=== PATIENT | male | born 1945 | race Two or more races ===

== ENCOUNTER 2022-09-28 21:00 | Inpatient (IN) | payer MEDICARE, OTHER ==
[~2022-09-28] VITALS: Ht 165.1 cm; Wt 47.2 kg
[2022-09-28] MEDS ORDERED: ALBUTEROL FS 2.5 MG/3 ML VIAL.NEB NEB ONE (21:30)
[2022-09-28] MEDS ORDERED: ACETAMINOPHEN 650 MG/SUPP.RECT RC ONE ×2 (21:37→22:00)
[2022-09-28 21:48] LABS: BASOPHILS % (AUTO) 0.2 % (0.0-2.0); HEMATOCRIT 41 % (39-51); HEMOGLOBIN 12.9 g/dL (13.5-17.5); LYMPHOCYTES # (AUTO) 0.6 K/uL (0.8-4.8); LYMPHOCYTES % (AUTO) 11.3 % (20.0-44.0); MEAN CORPUSCULAR HGB CONC 32 g/dl (31.0-36.0); MEAN CORPUSCULAR VOLUME 89 fL (80-96); MONOCYTES # (AUTO) 0.4 K/uL (0.1-1.30); MONOCYTES % (AUTO) 7.3 % (2.0-12.0); NEUTROPHILS # (AUTO) 4.1 K/uL (1.8-8.9); NEUTROPHILS % (AUTO) 81.2 % (43.0-81.0); PLATELET COUNT (AUTO) 118 K/uL (150-450); RED BLOOD CELL COUNT(AUTO) 4.58 MIL/uL (4.5-6.0); WHITE BLOOD COUNT (AUTO) 5.1 K/uL (4.3-11.0)
[2022-09-28] MEDS ORDERED: ALBUTEROL FS 2.5 MG/3 ML VIAL.NEB ONE (21:48)
[2022-09-28 21:51] VITALS: O2SAT 93
[2022-09-28 21:57] LABS: CALCIUM, SERUM 12.5 mg/dL (8.5-10.1); CARBON DIOXIDE 24 mmol/L (21-32); CREATININE 3.3 mg/dL (0.6-1.3); GLUCOSE 164 mg/dL (74-106); POTASSIUM 3.8 mmol/L (3.5-5.1); UREA NITROGEN, BLOOD 51 mg/dL (7-18)
[2022-09-28 21:59] LABS: CHLORIDE 131 mmol/L (98-107); SODIUM SERUM 167 mmol/L (136-145)
[2022-09-28 22:02] VITALS: O2SAT 92
[2022-09-28 22:10] LABS: ALANINE AMINOTRANSFERASE 18 U/L (12-78); ALBUMIN 3.2 g/dL (3.4-5.0); ALKALINE PHOSPHATASE 57 U/L (46-116); ASPARTATE AMINOTRANSFERASE 21 U/L (15-37); BILIRUBIN,DIRECT 0.4 mg/dL (0.0-0.2); BILIRUBIN,TOTAL 1.1 mg/dL (0.2-1.0)
[2022-09-28] MEDS ORDERED: ASPIRIN 300 MG/SUPP.RECT RC ONE ×2 (23:00→23:05)
[2022-09-28] MEDS ORDERED: IV NS 0.9% 1,000 ML BAG IV ONE (23:00)
[2022-09-28 23:05] LABS: BILIRUBIN,URINE NEGATIVE (NEGATIVE); COLOR,URINE YELLOW (YELLOW); LEUKOCYTE ESTERASE ,URINE TRACE (NEGATIVE); NITRITE, URINE NEGATIVE (NEGATIVE); PROTEIN,URINE 3+ mg/dl (NEGATIVE); UGLUCOSE NEGATIVE (NEGATIVE); UROBILINOGEN,URINE 0.2 EU/dL (0.2)
[2022-09-28 23:24] LABS: BACTERIA,URINE 2+ /HPF (None Seen); WBC,URINE 0-2 /HPF (0-3)
[2022-09-28 23:25] LABS: HYALINE CASTS, URINE Few /LPF (None Seen); MUCUS,URINE Many /LPF (None Seen); SQUAMOUS EPITHELIAL CELL,UR 0-2 /HPF (None Seen)
[2022-09-29] VITALS: BP 116/68; TEMP 98.3; O2SAT 92
[2022-09-29] MEDS ORDERED: CEFEPIME 1 GM in IV D5W 50 ML IV ONE ×2
[2022-09-29] MEDS ORDERED: CEFEPIME 1 GM VIAL ONE (00:03)
[2022-09-29] MEDS ORDERED: ONDANSETRON HCL/PF 4 MG/2 ML VIAL IVP PRN (00:30)
[2022-09-29] MEDS ORDERED: ACETAMINOPHEN 650 MG/SUPP.RECT RC PRN (00:30)
[2022-09-29] MEDS ORDERED: Z GUARD REMEDY 4 OZ OINT TP PRN (00:30)
[2022-09-29] MEDS ORDERED: MORPHINE SULFATE INJ 2 MG/ML DISP.SYRIN IV PRN (00:30)
[2022-09-29] MEDS: IV D5W 1,000 ML IV PRN ×2 (01:12→18:14)
[2022-09-29 02:30] VITALS: BP 126/68; TEMP 98.3; O2SAT 94
[2022-09-29] MEDS: CEFEPIME 1 GM in IV D5W 50 ML IV SCH (08:28)
[2022-09-29] MEDS: PANTOPRAZOLE 40 MG VIAL IV SCH (08:28)
[2022-09-29] MEDS: ASPIRIN 81 MG TAB.CHEW PO SCH (12:00)
[2022-09-29 13:01] LABS: CALCIUM, SERUM 11.7 mg/dL (8.5-10.1); CARBON DIOXIDE 21 mmol/L (21-32); CREATININE 3.5 mg/dL (0.6-1.3); GLUCOSE 197 mg/dL (74-106); POTASSIUM 3.7 mmol/L (3.5-5.1); UREA NITROGEN, BLOOD 63 mg/dL (7-18)
[2022-09-29 13:07] LABS: CHLORIDE 129 mmol/L (98-107); SODIUM SERUM 164 mmol/L (136-145)
[2022-09-29 20:00] VITALS: BP 136/80; TEMP 97.7; O2SAT 97
[2022-09-30 05:53] LABS: BASOPHILS % (AUTO) 0.2 % (0.0-2.0); HEMATOCRIT 36 % (39-51); HEMOGLOBIN 11.6 g/dL (13.5-17.5); LYMPHOCYTES # (AUTO) 0.4 K/uL (0.8-4.8); LYMPHOCYTES % (AUTO) 8.8 % (20.0-44.0); MEAN CORPUSCULAR HGB CONC 32 g/dl (31.0-36.0); MEAN CORPUSCULAR VOLUME 88 fL (80-96); MONOCYTES # (AUTO) 0.2 K/uL (0.1-1.30); MONOCYTES % (AUTO) 4.9 % (2.0-12.0); NEUTROPHILS # (AUTO) 4.2 K/uL (1.8-8.9); NEUTROPHILS % (AUTO) 86.1 % (43.0-81.0); PLATELET COUNT (AUTO) 102 K/uL (150-450); RED BLOOD CELL COUNT(AUTO) 4.05 MIL/uL (4.5-6.0); WHITE BLOOD COUNT (AUTO) 4.8 K/uL (4.3-11.0)
[2022-09-30 06:06] LABS: CALCIUM, SERUM 12.3 mg/dL (8.5-10.1); CARBON DIOXIDE 24 mmol/L (21-32); CREATININE 3.1 mg/dL (0.6-1.3); GLUCOSE 109 mg/dL (74-106); MAGNESIUM 2.8 mg/dL (1.8-2.4); PHOSPHORUS 2.1 mg/dL (2.5-4.9); POTASSIUM 3.8 mmol/L (3.5-5.1); UREA NITROGEN, BLOOD 76 mg/dL (7-18)
[2022-09-30 06:15] LABS: CHLORIDE 132 mmol/L (98-107); SODIUM SERUM 166 mmol/L (136-145)
[2022-09-30] MEDS: IV D5W 1,000 ML IV SCH ×2 (07:30→15:44)
[2022-09-30] MEDS: ASPIRIN 81 MG TAB.CHEW PO SCH (07:30)
[2022-09-30] MEDS: PANTOPRAZOLE 40 MG VIAL IV SCH (10:52)
[2022-09-30] MEDS: CEFEPIME 1 GM in IV D5W 50 ML IV SCH (10:53)
[2022-09-30 14:49] LABS: CARBON DIOXIDE 25 mmol/L (21-32); CREATININE 2.8 mg/dL (0.6-1.3); GLUCOSE 127 mg/dL (74-106)
[2022-09-30] MEDS ORDERED: GLYCOPYRROLATE 0.2 MG/ML VIAL IV PRN (15:00)
[2022-09-30 15:10] LABS: CALCIUM, SERUM 11.4 mg/dL (8.5-10.1)
[2022-09-30 15:19] LABS: CHLORIDE 127 mmol/L (98-107); SODIUM SERUM 160 mmol/L (136-145); UREA NITROGEN, BLOOD 81 mg/dL (7-18)
[2022-09-30] MEDS ORDERED: Potassium Chloride 20 MEQ in IV NS 0.9% 1,000 ML IV SCH (20:00)
[2022-09-30] MEDS ORDERED: POTASSIUM CHLORIDE 10 MEQ/50 ML PREMIXED IVPB FOR PERIPHERAL LINE IV ONE (20:00)
[2022-09-30] MEDS: POTASSIUM CL. PREMIX PERIPHER. 50 ML IV SCH ×2 (20:29→21:40)
[2022-10-01] MEDS: IV D5W 1,000 ML IV SCH ×4 (00:21→20:33)
[2022-10-01 07:16] LABS: EOSINOPHILS % (AUTO) 0.5 % (0.0-6.0); HEMATOCRIT 34 % (39-51); HEMOGLOBIN 11.1 g/dL (13.5-17.5); LYMPHOCYTES # (AUTO) 0.5 K/uL (0.8-4.8); LYMPHOCYTES % (AUTO) 8.2 % (20.0-44.0); MEAN CORPUSCULAR HGB CONC 33 g/dl (31.0-36.0); MEAN CORPUSCULAR VOLUME 88 fL (80-96); MONOCYTES # (AUTO) 0.3 K/uL (0.1-1.30); NEUTROPHILS # (AUTO) 5.8 K/uL (1.8-8.9); NEUTROPHILS % (AUTO) 87.3 % (43.0-81.0); PLATELET COUNT (AUTO) 98 K/uL (150-450); RED BLOOD CELL COUNT(AUTO) 3.89 MIL/uL (4.5-6.0); WHITE BLOOD COUNT (AUTO) 6.7 K/uL (4.3-11.0)
[2022-10-01] MEDS: CEFEPIME 1 GM in IV D5W 50 ML IV SCH (08:00)
[2022-10-01 08:01] LABS: CALCIUM, SERUM 11.2 mg/dL (8.5-10.1); CARBON DIOXIDE 23 mmol/L (21-32); CHLORIDE 124 mmol/L (98-107); GLUCOSE 145 mg/dL (74-106); MAGNESIUM 2.6 mg/dL (1.8-2.4); POTASSIUM 3.7 mmol/L (3.5-5.1); UREA NITROGEN, BLOOD 66 mg/dL (7-18)
[2022-10-01 08:02] LABS: SODIUM SERUM 156 mmol/L (136-145)
[2022-10-01] MEDS: PANTOPRAZOLE 40 MG VIAL IV SCH (09:09)
[2022-10-01] MEDS: ASPIRIN 81 MG TAB.CHEW PO SCH (09:09)
[2022-10-01] MEDS ORDERED: LORA-259 PO (10:25)
[2022-10-01] MEDS ORDERED: QUET50TA PO (10:25)
[2022-10-01] MEDS ORDERED: TAMS-12 PO (10:25)
[2022-10-01] MEDS ORDERED: QUET100T PO (10:25)
[2022-10-01] MEDS ORDERED: RISP1TAB7 PO (10:25)
[2022-10-01] MEDS ORDERED: ZINC50TA39 PO (10:25)
[2022-10-01] MEDS ORDERED: TRAZ-257 PO (10:25)
[2022-10-01] MEDS ORDERED: CHOL200059 PO (10:25)
[2022-10-01] MEDS ORDERED: LOSA50TA39 PO (10:25)
[2022-10-02] MEDS: IV D5W 1,000 ML IV SCH (04:55)
[2022-10-02 06:04] LABS: BASOPHILS % (AUTO) 0.1 % (0.0-2.0); EOSINOPHILS % (AUTO) 2.3 % (0.0-6.0); HEMATOCRIT 32 % (39-51); HEMOGLOBIN 10.4 g/dL (13.5-17.5); LYMPHOCYTES # (AUTO) 0.5 K/uL (0.8-4.8); LYMPHOCYTES % (AUTO) 10.2 % (20.0-44.0); MEAN CORPUSCULAR HGB CONC 33 g/dl (31.0-36.0); MEAN CORPUSCULAR VOLUME 87 fL (80-96); MONOCYTES # (AUTO) 0.2 K/uL (0.1-1.30); MONOCYTES % (AUTO) 4.8 % (2.0-12.0); NEUTROPHILS # (AUTO) 3.8 K/uL (1.8-8.9); NEUTROPHILS % (AUTO) 82.6 % (43.0-81.0); PLATELET COUNT (AUTO) 96 K/uL (150-450); RED BLOOD CELL COUNT(AUTO) 3.64 MIL/uL (4.5-6.0); WHITE BLOOD COUNT (AUTO) 4.6 K/uL (4.3-11.0)
[2022-10-02 06:33] LABS: CALCIUM, SERUM 10.9 mg/dL (8.5-10.1); CREATININE 1.3 mg/dL (0.6-1.3); MAGNESIUM 2.3 mg/dL (1.8-2.4); PHOSPHORUS 2.7 mg/dL (2.5-4.9); POTASSIUM 3.9 mmol/L (3.5-5.1)
[2022-10-02] MEDS: CEFEPIME 1 GM in IV D5W 50 ML IV SCH (07:39)
[2022-10-02 08:00] VITALS: BP 137/77; TEMP 97.4; O2SAT 99
[2022-10-02 08:07] LABS: *ANA ANTI-CENTROMERE B AB <0.2 AI (0.0-0.9); *ANA ANTI-DNA(DS) AB, QN <1 IU/mL (0-9); *ANA ANTI-JO-1 <0.2 AI (0.0-0.9); *ANA ANTICHROMATIN ANTIBODY <0.2 AI (0.0-0.9); *ANA RNP ANTIBODIES <0.2 AI (0.0-0.9); *ANA SJOGREN'S ANTI-SS-A <0.2 AI (0.0-0.9); *ANA SJOGREN'S ANTI-SS-B <0.2 AI (0.0-0.9); *ANAANTI-SCLERODERMA-70 AB <0.2 AI (0.0-0.9); *ANASMITH AB <0.2 AI (0.0-0.9); COMPLEMENT C3, SERUM 117 mg/dL (82-167); COMPLEMENT C4, SERUM 54 mg/dL (12-38)
[2022-10-02 08:52] LABS: LYMPHOCYTES % (MANUAL) 9 % (16-48); MONOCYTES % (MANUAL) 3 % (0-11.0); NEUTROPHILS % (MANUAL) 88 (42-76)
[2022-10-02] MEDS: PANTOPRAZOLE 40 MG VIAL IV SCH (09:07)
[2022-10-02] MEDS: ASPIRIN 81 MG TAB.CHEW PO SCH (09:08)
[2022-10-02] MEDS: IV D5W 1,000 ML IV PRN (15:54)
[2022-10-02 16:00] VITALS: BP 146/74; TEMP 97.4; O2SAT 99
[2022-10-02 20:00] VITALS: BP_SYST 137; BP_SYST 143; BP_DIAS 75; BP_DIAS 81; TEMP 98.3; TEMP 98.4; O2SAT 94; O2SAT 98
[2022-10-03] VITALS: BP_SYST 137; BP_SYST 143; BP_DIAS 75; BP_DIAS 81; TEMP 98.3; TEMP 98.4; O2SAT 94; O2SAT 98
[2022-10-03] MEDS: IV D5W 1,000 ML IV PRN ×3 (01:11→17:21)
[2022-10-03 05:58] LABS: CALCIUM, SERUM 10.8 mg/dL (8.5-10.1); CARBON DIOXIDE 24 mmol/L (21-32); CHLORIDE 113 mmol/L (98-107); CREATININE 1.1 mg/dL (0.6-1.3); GLUCOSE 117 mg/dL (74-106); POTASSIUM 3.2 mmol/L (3.5-5.1); SODIUM SERUM 144 mmol/L (136-145); UREA NITROGEN, BLOOD 29 mg/dL (7-18)
[2022-10-03 08:00] VITALS: BP 142/72; TEMP 97.9; O2SAT 99
[2022-10-03] MEDS: PANTOPRAZOLE 40 MG VIAL IV SCH (08:05)
[2022-10-03] MEDS: CEFEPIME 1 GM in IV D5W 50 ML IV SCH (08:05)
[2022-10-03] MEDS: ASPIRIN 81 MG TAB.CHEW PO SCH (08:05)
[2022-10-03 11:46] VITALS: O2SAT 92
[2022-10-03 16:00] VITALS: BP 116/75; TEMP 97.7; O2SAT 95
[2022-10-03 20:00] VITALS: BP 150/83; TEMP 98.6; O2SAT 95
[2022-10-04] VITALS: O2SAT 95
[2022-10-04] MEDS: IV D5W 1,000 ML IV PRN (01:34)
[2022-10-04 07:32] LABS: CALCIUM, SERUM 10.6 mg/dL (8.5-10.1); CREATININE 0.9 mg/dL (0.6-1.3); POTASSIUM 3.5 mmol/L (3.5-5.1)
[2022-10-04 08:00] VITALS: BP 153/55; TEMP 97.9; O2SAT 97
[2022-10-04] MEDS ORDERED: CEFTRIAXONE 1 G in IV D5W 50 ML IV SCH (08:00)
[2022-10-04] MEDS ORDERED: PANTOPRAZOLE 40 MG/PACK PACK PO SCH (09:00)
[2022-10-04] MEDS: ASPIRIN 81 MG TAB.CHEW PO SCH (09:09)
== END 2022-10-04 14:55 | disposition hospice, home (50) | DRG 871 ==
LOC: ER 21:10 → TELE-TD 09-29 02:08 → TELE1 09-29 02:32 → MEDSG1 09-30 19:43
PROVIDERS: ADMIT Nurse Practitioner Acute Care; ATTEND Internal Medicine
DX: A41.9 Sepsis, unspecified organism (principal); E43 Unspecified severe protein-calorie malnutrition; I21.4 Non-ST elevation (NSTEMI) myocardial infarction; N17.0 Acute kidney failure with tubular necrosis; J69.0 Pneumonitis due to inhalation of food and vomit; E87.0 Hyperosmolality and hypernatremia; N39.0 Urinary tract infection, site not specified; E87.20 Acidosis, unspecified; R64 Cachexia; Z68.1 Body mass index [BMI] 19.9 or less, adult; I50.30 Unspecified diastolic (congestive) heart failure; R62.7 Adult failure to thrive; Z20.822 Contact with and (suspected) exposure to COVID-19; Z66 Do not resuscitate; G20 Parkinson's disease; G30.9 Alzheimer's disease, unspecified; F02.C0 Dementia in other diseases classified elsewhere, severe, without behavioral disturbance, psychotic disturbance, mood disturbance, and anxiety; B96.89 Other specified bacterial agents as the cause of diseases classified elsewhere; Z51.5 Encounter for palliative care; E83.52 Hypercalcemia; D69.6 Thrombocytopenia, unspecified; E87.8 Other disorders of electrolyte and fluid balance, not elsewhere classified; E86.0 Dehydration; I11.0 Hypertensive heart disease with heart failure; E83.39 Other disorders of phosphorus metabolism; R13.10 Dysphagia, unspecified
CPT/HCPCS: 36415; 71045-TC; 80048-TC; 80076-TC; 81001; 82533; 83605-TC; 83735-TC; 83880; 84100-TC; 84443-TC; 84484-TC; 85025-TC; 85730-TC; 86225; 86235; 86706; 86803; 87040-TC; 87081-TC; 87086-TC; 92507-TC; 92526; 92611-TC; 93307-TC; 94799-TC; 97110-TC; 97116-TC; 97530-TC; A4223; C9113; C9803; G0378; J0692; J0696; J2270; J3480; J3490; J7040; J7050; J7060; J7070

== ENCOUNTER 2025-01-30 10:43 | Inpatient (IN) | payer MEDICARE, OTHER ==
[~2025-01-30] VITALS: Ht 170.2 cm; Wt 63.5 kg
[2025-01-30 11:27] LABS: PLATELET COUNT (AUTO) 108 K/uL (150-450); RED BLOOD CELL COUNT(AUTO) 3.30 MIL/uL (4.5-6.0); RED CELL DISTRIBUTION WIDTH 14.0 % (11.5-15.0); WHITE BLOOD COUNT (AUTO) 6.3 K/uL (4.3-11.0)
[2025-01-30 11:36] LABS: CALCIUM, SERUM 9.9 mg/dL (8.5-10.1); CREATININE 1.4 mg/dL (0.6-1.3); SODIUM SERUM 136.0 mmol/L (136-145); UREA NITROGEN, BLOOD 23.0 mg/dL (7-18)
[2025-01-30 11:42] LABS: ASPARTATE AMINOTRANSFERASE 11.0 U/L (15-37); TOTAL PROTEIN, SERUM 6.7 g/dL (6.4-8.2)
[2025-01-30] MEDS ORDERED: LOSA100T31 PO (11:52)
[2025-01-30] MEDS ORDERED: LORA-258 PO (11:52)
[2025-01-30] MEDS ORDERED: TRAZ-182 PO (11:52)
[2025-01-30] MEDS ORDERED: TAMS-12 PO (11:52)
[2025-01-30] MEDS ORDERED: ONDANSETRON HCL/PF 4 MG/2 ML VIAL IVP PRN (13:00)
[2025-01-30] MEDS ORDERED: MORPHINE SULFATE INJ 2 MG/ML DISP.SYRIN IV PRN (13:00)
[2025-01-30] MEDS ORDERED: MAGNESIUM HYDROXIDE 30 ML UDC PO PRN (13:00)
[2025-01-30] MEDS ORDERED: TRAZODONE 50 MG TABLET PO PRN (13:00)
[2025-01-30] MEDS ORDERED: Z GUARD REMEDY 4 OZ OINT TP PRN (13:00)
[2025-01-30] MEDS ORDERED: LORAZEPAM 0.5 MG TABLET PO PRN (13:00)
[2025-01-30] MEDS: IV NS 0.9% 1,000 ML IV SCH (13:00)
[2025-01-30] MEDS: DOCUSATE SODIUM LIQ 100 MG/10 ML UDC PO SCH (15:38)
[2025-01-30 15:49] VITALS: BP 180/100; TEMP 97.7; O2SAT 98
[2025-01-30] MEDS: hydrALAZINE HCL IV 20 MG VIAL IV PRN (15:52)
[2025-01-30 16:00] VITALS: BP 140/79; TEMP 97.3; O2SAT 99
[2025-01-30] MEDS: ACETAMINOPHEN 325 MG TABLET PO PRN (16:16)
[2025-01-30 17:35] VITALS: BP 140/92; TEMP 207.9; O2SAT 98
[2025-01-30 20:00] VITALS: BP 143/91; TEMP 97.5; O2SAT 95
[2025-01-30] MEDS: HEPARIN SODIUM, PORCINE 5000 UNITS/1 ML VIAL SQ SCH (21:00)
[2025-01-31 07:00] VITALS: BP 160/144; TEMP 97.7; O2SAT 93
[2025-01-31 07:43] LABS: PLATELET COUNT (AUTO) 115 K/uL (150-450); RED BLOOD CELL COUNT(AUTO) 2.92 MIL/uL (4.5-6.0); RED CELL DISTRIBUTION WIDTH 14.0 % (11.5-15.0); WHITE BLOOD COUNT (AUTO) 7.0 K/uL (4.3-11.0)
[2025-01-31 08:05] LABS: ASPARTATE AMINOTRANSFERASE 14.0 U/L (15-37); CALCIUM, SERUM 9.8 mg/dL (8.5-10.1); CREATININE 1.2 mg/dL (0.6-1.3); PHOSPHORUS 1.6 mg/dL (2.5-4.9); SODIUM SERUM 140.0 mmol/L (136-145); TOTAL PROTEIN, SERUM 6.9 g/dL (6.4-8.2); UREA NITROGEN, BLOOD 20.0 mg/dL (7-18)
[2025-01-31 08:09] LABS: INR 1.08 (0.91-1.10)
[2025-01-31] MEDS: TAMSULOSIN 0.4 MG CAP.SR.24H PO SCH (09:00)
[2025-01-31] MEDS: POLYETHYLENE GLYCOL 3350 17 GM POWD.PACK PO SCH (09:00)
[2025-01-31] MEDS: LOSARTAN POTASSIUM 50 MG TABLET PO SCH (09:00)
[2025-01-31] MEDS ORDERED: VANCOMYCIN 1 GM VIAL ONE (10:02)
[2025-01-31] MEDS ORDERED: BUPIVACAINE 0.5 % PF 150 MG/30 ML VIAL ONE (10:02)
[2025-01-31] MEDS ORDERED: FENTANYL PF 100MCG/2ML AMPUL ONE ×2 (10:03→12:06)
[2025-01-31] MEDS ORDERED: LABETALOL 20 MG/4 ML VIAL ONE (11:38)
[2025-01-31 15:00] VITALS: BP 121/94; TEMP 97.5; O2SAT 100
[2025-01-31] MEDS ORDERED: HYDROCODONE/APAP 10/325MG TABLET PO PRN (15:00)
[2025-01-31] MEDS: Sodium Phosphate 15 MMOL in IV NS 0.9% 245 ML IV SCH (16:29)
[2025-01-31] MEDS: IV D5/0.45 NACL W/20 MEQ KCL 1L IV SCH (16:31)
[2025-01-31 20:00] VITALS: BP 144/86; TEMP 99.5; O2SAT 98
[2025-02-01 08:00] VITALS: BP 162/106; TEMP 97.6; O2SAT 96
[2025-02-01 08:34] LABS: CALCIUM, SERUM 8.7 mg/dL (8.5-10.1); CREATININE 1.3 mg/dL (0.6-1.3); PHOSPHORUS 2.2 mg/dL (2.5-4.9); SODIUM SERUM 147.0 mmol/L (136-145); UREA NITROGEN, BLOOD 20.0 mg/dL (7-18)
[2025-02-01] MEDS: NEUTRA PHOS 1 POWD.PACKET PO ONE (16:17)
[2025-02-01] MEDS: MORPHINE SULFATE INJ 4 MG/ML DISP.SYRIN IV PRN (17:26)
[2025-02-01 20:00] VITALS: BP 121/100; TEMP 98.6; O2SAT 98
[2025-02-02 08:13] LABS: CALCIUM, SERUM 9.3 mg/dL (8.5-10.1); CREATININE 1.3 mg/dL (0.6-1.3); SODIUM SERUM 149.0 mmol/L (136-145); UREA NITROGEN, BLOOD 24.0 mg/dL (7-18)
[2025-02-02 09:06] VITALS: BP 145/98; TEMP 98.4; O2SAT 97
[2025-02-02 09:10] VITALS: BP 145/98
== END 2025-02-02 16:15 | disposition hospice, home (50) | DRG 481 ==
LOC: ER 11:12 → MED 14:33
PROVIDERS: ADMIT Internal Medicine; ATTEND Student in an Organized Health Care Education/Training Program
PROC: 05H933Z Insertion of Infusion Device into Right Brachial Vein, Percutaneous Approach (ICD-10-PCS; 2025-01-31)
PROC: 0QS606Z Reposition Right Upper Femur with Intramedullary Internal Fixation Device, Open Approach (ICD-10-PCS; principal; 2025-01-31 08:30)
DX: S72.21XA Displaced subtrochanteric fracture of right femur, initial encounter for closed fracture (principal); G93.49 Other encephalopathy; Z51.5 Encounter for palliative care; N17.9 Acute kidney failure, unspecified; F02.C0 Dementia in other diseases classified elsewhere, severe, without behavioral disturbance, psychotic disturbance, mood disturbance, and anxiety; I11.0 Hypertensive heart disease with heart failure; Z66 Do not resuscitate; G30.9 Alzheimer's disease, unspecified; W06.XXXA Fall from bed, initial encounter; Y92.003 Bedroom of unspecified non-institutional (private) residence as the place of occurrence of the external cause; I50.9 Heart failure, unspecified; I25.2 Old myocardial infarction; N40.0 Benign prostatic hyperplasia without lower urinary tract symptoms; Z79.899 Other long term (current) drug therapy; G43.909 Migraine, unspecified, not intractable, without status migrainosus
CPT/HCPCS: 36415; 70450-TC; 71045-TC; 73501; 73700-TC; 80048-TC; 80053-TC; 82962-TC; 83735-TC; 84100-TC; 85025-TC; 85610-TC; 85730-TC; 86850-TC; 87081-TC; 92526; 92611; 93307-TC; 97110-TC; 97112-TC; 97530-TC; 97535-TC; A4223; A6209; A6223; A9563; C1713; G0378; J0360; J0690; J1644; J2270; J2405; J2704; J3010; J3373; J3480; J3490; J7030; J7050